=== PATIENT | female | born 1970 | race Caucasian/White ===

== ENCOUNTER 2016-04-15 11:34 | Emergency (ER) | payer BC, OTHER ==
--- NOTE | 2016-04-15 11:49 | ER Document Report ---
ED Medical Screen (RME) - General TRAVEL OUTSIDE OF THE [place] IN LAST 30 DAYS: No - General Stated Complaint: FLANK/BACK PAIN Notes: Right flank pain nausea for 24 hours. (JOANN FONG) - Related Data Allergies/Adverse Reactions: Penicillins Allergy (Severe, Verified 04/15/16 11:49) Hives Past Medical History - Past Medical History Cardiac Medical History: Denies: Hx Coronary Artery Disease, Hx Heart Attack, Hx Hypertension Pulmonary Medical History: Denies: Hx Asthma, Hx Bronchitis, Hx COPD, Hx Pneumonia Neurological Medical History: Denies: Hx Cerebrovascular Accident, Hx Seizures Musculoskeltal Medical History: Denies Hx Arthritis Past Surgical History: Reports: Hx Tubal Ligation - Immunizations Hx Diphtheria, Pertussis, Tetanus Vaccination: Yes
[2016-04-15] MEDS ORDERED: KETOROLAC TROMETHAMINE 60 MG/2 ML SDV IV ONE (12:39)
[2016-04-15] MEDS ORDERED: ONDANSETRON HCL INJ/PF 4 MG/2 ML SDV IV ONE (12:39)
--- NOTE | 2016-04-15 12:48 | ER Document Report ---
ED GI/ - General Chief Complaint: Abdominal Pain Stated Complaint: FLANK/BACK PAIN Notes: Patient is complaining of 2 day history of pain beginning in the mid epigastric region of the abdomen and going around the right upper quadrant into the right back. The pain is constant and sharp and worsened with a deep breath or by food intake. She's been nauseated but not vomited. No diarrhea or change in bowels. Denies UTI symptoms. Has never had a kidney stone. No cough or cold or chest congestion. No fevers. PMH: BTL, hysterectomy. No chronic medications. TRAVEL OUTSIDE OF THE [place] IN LAST 30 DAYS: No - Related Data Allergies/Adverse Reactions: Penicillins Allergy (Severe, Verified 04/15/16 11:49) Hives Past Medical History - Social History Smoking Status: Current Every Day Smoker Cigarette use (# per day): Yes Chew tobacco use (# tins/day): No Frequency of alcohol use: None Drug Abuse: None Family History: None, Reviewed & Not Pertinent Patient has suicidal ideation: No Patient has homicidal ideation: No - Past Medical History Cardiac Medical History: Denies: Hx Coronary Artery Disease Past Surgical History: Reports: Hx Hysterectomy, Hx Tubal Ligation - Immunizations Hx Diphtheria, Pertussis, Tetanus Vaccination: Yes Review of Systems - Review of Systems Notes: REVIEW OF SYSTEMS: CONSTITUTIONAL : Denies fever. EENT: Denies eye, ear, nose or mouth or throat pain or other symptoms. CARDIOVASCULAR: Denies chest pain. RESPIRATORY: Denies cough, chest congestion, or shortness of breath. GASTROINTESTINAL: See history of present illness. GENITOURINARY: Denies difficulty or painful urinating, urinary frequency, blood in urine. MUSCULOSKELETAL: Denies back or neck pain. Denies joint pain or swelling. SKIN: Denies rash or skin lesions. NEUROLOGICAL: Denies LOC or altered mental status. Denies headache. Denies sensory loss or motor deficits. ALL OTHER SYSTEMS REVIEWED AND NEGATIVE. Physical Exam - Vital signs Vitals: Temp Pulse Resp BP Pulse Ox 98.2 F 62 24 H 127/77 H 98 04/15/16 11:46 04/15/16 11:46 04/15/16 11:46 04/15/16 11:46 04/15/16 11:46 Interpretation: Normal - Notes Notes: PHYSICAL EXAMINATION: GENERAL: Well-appearing, in no acute distress. Appears uncomfortable. Vital signs are normal. Afebrile. HEAD: Atraumatic, normocephalic. NECK: Normal range of motion, supple. LUNGS: Breath sounds clear and equal bilaterally. HEART: Regular rate and rhythm without murmurs. ABDOMEN: Soft, mild tenderness in the right upper quadrant. No masses felt. No bruits heard. No guarding or rebound. BACK: No tenderness throughout entire back. EXTREMITIES: Normal range of motion without pain. NEUROLOGICAL: Normal speech, normal gait. Normal sensory, motor, and reflex exams. Awake, alert, and oriented x3. Cranial nerves normal. SKIN: Warm, dry, no rashes. Course - Re-evaluation Re-evalutation: 04/15/16 15:02 Workup is essentially normal. I relayed this information to the patient. Pointed out to her that it's possible she still could have some gallbladder problems that would require a further test, a HIDA scan which could be ordered by her primary care physician, if she continues to have symptoms. For now, I'm going to prescribe symptomatic medication and recommend she follow-up with her primary care or return if she has new or worsening symptoms. - Vital Signs Vital signs: Temp Pulse Resp BP Pulse Ox 98.2 F 62 24 H 127/77 H 98 04/15/16 11:46 04/15/16 11:46 04/15/16 11:46 04/15/16 11:46 04/15/16 11:46 - Laboratory Result Diagrams: 04/15/16 13:12 04/15/16 13:12 Laboratory results interpreted by me: 04/15/16 13:12 BUN 5 L - Diagnostic Test Radiology reviewed: Image reviewed, Reports reviewed - Ultrasound of the right upper quadrant is normal. Discharge - Discharge Clinical Impression: Right upper quadrant abdominal pain Condition: Stable Disposition: HOME, SELF-CARE Additional Instructions: ABDOMINAL PAIN: There are many causes of abdominal pain. Pain can mean a serious problem requiring surgery (such as appendicitis). It can also be an innocent problem that goes away on its own (such as a viral infection). Often, time must pass to determine the cause of pain. The physician does not feel that hospitalization is necessary, at present. Things may change within the next 24 hours. Call the doctor or come back for re- examination if any problems occur, such as: (1) Pain that becomes more severe, steady, or becomes concentrated in one specific area. Also, pain that is more severe with movement or coughing. (2) Vomiting that persists or becomes more frequent. (3) Blood in the vomitus, urine, or bowel movements. Blood in the stool may have a tarry or black appearance. (4) Shaking chills or fever greater than 100 degrees F. (5) The abdomen becomes more distended or swollen. (6) Bowel movements cease. (7) Failure to improve as expected. NORMAL EXAM AND WORKUP: At this time, your examination and workup show no significant abnormality. No significant abnormal physical findings are noted. All laboratory, EKG, and imaging (x-ray, CT scans, ultrasound) studies that were ordered show no significant abnormality. Although your examination and all studies that were ordered showed no significant abnormal finding, there are no examinations and no studies that are 100% accurate. There is always the possibility that some abnormality could exist and not be detected with physical examination or within the limits and capabilities of laboratory and other studies. You should return or follow up as you were instructed on your visit today for further evaluation if your symptoms do not resolve. TORADOL INJECTION: You have been given an injection of ketorolac tromethamine (Toradol). This is an excellent, safe drug for pain control. It also has potent antiinflammatory action. You should have significant pain relief within about one hour. Toradol is not addicting and is non-sedating. It does not interfere with driving or work. Call or return if you develop itching, hives, shortness of breath, or rash. ANTINAUSEA MEDICATION: You have been given a medication to suppress nausea and vomiting. This type of medication can be given as a shot, pill, or suppository. It will usually last for many hours. Pills and shots usually last six to eight hours, suppositories last about 12 hours. For the typical illness, only one or two doses of the medication may be necessary. Mild lightheadedness may occur. This type of medicine can cause drowsiness. Do not drive or operate dangerous machinery while under its influence. Do not mix with alcohol. See your doctor at once if you have muscle spasms or tightness, or uncontrollable motions (particularly of the neck, mouth, or jaw). Persistent vomiting or severe lightheadedness should also be evaluated by the physician. ORAL NARCOTIC MEDICATION: You have been given a prescription for pain control. This medication is a narcotic. It's best taken with food, as nausea can result if taken on an empty stomach. Don't operate machinery or drive within six hours of taking this medication. Do not combine this medicine with alcohol, or with any medication which can cause sedation (such as cold tablets or sleeping pills) unless you get permission from the physician. Narcotics tend to cause constipation. If possible, drink plenty of fluids and eat a diet high in fiber and fruits. FOLLOW-UP CARE: If you have been referred to a physician for follow-up care, call the physician s office for an appointment as you were instructed or within the next two days. If you experience worsening or a significant change in your symptoms, notify the physician immediately or return to the Emergency Department at any time for re-evaluation. If your symptoms resolve over the next couple of days, I don't think you need to have any more follow-up. However, if you're not doing better in a couple of days, I would follow-up with your primary care physician for further testing, such as a HIDA scan of your gallbladder. Prescriptions: Oxycodone HCl/Acetaminophen [Percocet 5-325 mg Tablet] 1 - 2 tab PO Q4H PRN #15 tablet PRN Reason: Promethazine HCl [Phenergan 25 mg Tablet] 1 - 2 tab PO Q6H PRN #15 tablet PRN Reason: Forms: Return to Work
[2016-04-15 12:57] LABS: APPEARANCE,URINE CLEAR; BILIRUBIN,URINE NEGATIVE (NEGATIVE); GLUCOSE, URINE NEGATIVE (NEGATIVE); KETONES,URINE NEGATIVE (NEGATIVE); LEUKOCYTE ESTERASE,URINE NEGATIVE (NEGATIVE); NITRITE,URINE NEGATIVE (NEGATIVE); PROTEIN,URINE NEGATIVE (NEGATIVE); URINE SPECIFIC GRAVITY 1.012; UROBILINOGEN,URINE NEGATIVE mg/dL (<2.0)
[2016-04-15 13:34] LABS: ABSOLUTE EOSINOPHILS # (AUTO) 0.1 10^3/uL (0.0-0.6); ABSOLUTE LYMPHOCYTES (AUTO) 2.2 10^3/uL (0.5-4.7); ABSOLUTE MONOCYTES (AUTO) 0.6 10^3/uL (0.1-1.4); ABSOLUTE NEUT (AUTO) 6.5 10^3/uL (1.7-8.2); BASOPHILS % (AUTO) 0.2 % (0-2); EOSINOPHILS % (AUTO) 1.1 % (0-6); HEMATOCRIT 41.7 % (36.0-47.0); HGB HCT DIFFERENCE 0.3; LYMPHOCYTES % (AUTO) 23.4 % (13-45); MEAN CORPUSCULAR HEMOGLOBIN 31.3 pg (27.0-33.4); MEAN CORPUSCULAR HGB CONC 33.6 g/dL (32.0-36.0); MEAN CORPUSCULAR VOLUME 93 fl (80-97); MONOCYTES % (AUTO) 6.7 % (3-13); RED BLOOD COUNT 4.48 10^6/uL (3.72-5.28); RED CELL DISTRIBUTION WIDTH 13.6 % (11.5-14.0); SEGMENTED NEUTROPHILS % (AUTO) 68.6 % (42-78); WHITE BLOOD COUNT 9.5 10^3/uL (4.0-10.5)
[2016-04-15 13:49] LABS: ALANINE AMINOTRANSFERASE 18 U/L (9-52); ALBUMIN 4.2 g/dL (3.5-5.0); ALKALINE PHOSPHATASE 94 U/L (38-126); ANION GAP 10 (5-19); ASPARTATE AMINO TRANSFERASE 14 U/L (14-36); BILIRUBIN,TOTAL 0.5 mg/dL (0.2-1.3); BLOOD UREA NITROGEN 5 mg/dL (7-20); CALCIUM 9.7 mg/dL (8.4-10.2); CARBON DIOXIDE 28 mmol/L (22-30); CHLORIDE 105 mmol/L (98-107); CREATININE RESULT 0.68 mg/dL (0.52-1.25); GLUCOSE 89 mg/dL (75-110); LIPASE 110.6 U/L (23-300); POTASSIUM 4.7 mmol/L (3.6-5.0); TOTAL PROTEIN 6.9 g/dL (6.3-8.2)
[2016-04-15 15:25] VITALS: BP 131/68
== END 2016-04-15 15:15 | disposition home or self-care (01) ==
LOC: ER 11:34
DX: R10.11 Right upper quadrant pain (principal); R10.13 Epigastric pain; M54.89 Other dorsalgia; Z88.0 Allergy status to penicillin; F17.210 Nicotine dependence, cigarettes, uncomplicated; Z90.710 Acquired absence of both cervix and uterus; Z98.51 Tubal ligation status
CPT/HCPCS: 99284; 96374; 96375; 36415; 83690; 85025; 80053; 81001; 74000; 76705; J1885; J2405

== ENCOUNTER 2016-12-01 17:48 | Emergency (ER) | payer OTHER ==
[2016-12-01] MEDS ORDERED: NORMAL SALINE 1000 ML 1,000 ML IV ONE (18:11)
[2016-12-01] MEDS ORDERED: FAMOTIDINE INJ/PF 20 MG/2 ML SDV IV ONE (18:12)
[2016-12-01] MEDS ORDERED: KETOROLAC TROMETHAMINE INJ/PF 30 MG/1 ML SDV IV ONE (18:12)
[2016-12-01] MEDS ORDERED: ONDANSETRON HCL INJ/PF 4 MG/2 ML SDV IV ONE ×2 (18:12→19:07)
[2016-12-01] MEDS ORDERED: DICYCLOMINE HCL INJ 20 MG/2 ML AMPULE IM ONE (18:14)
--- NOTE | 2016-12-01 18:14 | ER Document Report ---
ED Medical Screen (RME) - General Chief Complaint: Abdominal Pain Stated Complaint: STOMACH PAIN Time Seen by Provider: 12/01/16 18:08 TRAVEL OUTSIDE OF THE [place] IN LAST 30 DAYS: No - HPI Notes: 12/01/16 18:13 Years of abdominal pain acute relapse yesterday worse today negative workup in March patient recommended to follow-up for HIDA states has not had a EGD or HIDA scan performed - Related Data Allergies/Adverse Reactions: Penicillins Allergy (Severe, Verified 12/01/16 17:54) Hives Past Medical History - Social History Chew tobacco use (# tins/day): No Frequency of alcohol use: Occasional Drug Abuse: None - Past Medical History Cardiac Medical History: Denies: Hx Coronary Artery Disease, Hx Heart Attack, Hx Hypertension Pulmonary Medical History: Denies: Hx Asthma, Hx Bronchitis, Hx COPD, Hx Pneumonia Neurological Medical History: Denies: Hx Cerebrovascular Accident, Hx Seizures Renal/ Medical History: Denies: Hx Peritoneal Dialysis Musculoskeltal Medical History: Denies Hx Arthritis Past Surgical History: Reports: Hx Hysterectomy, Hx Tubal Ligation - Immunizations Hx Diphtheria, Pertussis, Tetanus Vaccination: Yes Review of Systems - Review of Systems Constitutional: No symptoms reported EENT: No symptoms reported Cardiovascular: No symptoms reported Respiratory: No symptoms reported Gastrointestinal: Abdominal pain, Nausea, Vomiting Genitourinary: No symptoms reported Female Genitourinary: No symptoms reported Musculoskeletal: No symptoms reported Skin: No symptoms reported Hematologic/Lymphatic: No symptoms reported Neurological/Psychological: No symptoms reported Physical Exam - Vital signs Vitals: Temp Pulse Resp BP Pulse Ox 97.9 F 60 22 H 149/88 H 100 12/01/16 17:49 12/01/16 17:49 12/01/16 17:49 12/01/16 17:49 12/01/16 17:49 - Respiratory Respiratory status: No respiratory distress Chest status: Nontender Breath sounds: Normal Chest palpation: Normal Course - Vital Signs Vital signs: Temp Pulse Resp BP Pulse Ox 97.9 F 60 22 H 149/88 H 100 12/01/16 17:49 12/01/16 17:49 12/01/16 17:49 12/01/16 17:49 12/01/16 17:49
[2016-12-01 18:34] LABS: ABSOLUTE BASOPHILS # (AUTO) 0.1 10^3/uL (0.0-0.2); ABSOLUTE LYMPHOCYTES (AUTO) 2.6 10^3/uL (0.5-4.7); ABSOLUTE MONOCYTES (AUTO) 0.7 10^3/uL (0.1-1.4); ABSOLUTE NEUT (AUTO) 10.5 10^3/uL (1.7-8.2); BASOPHILS % (AUTO) 0.5 % (0-2); EOSINOPHILS % (AUTO) 0.1 % (0-6); HEMATOCRIT 44.5 % (36.0-47.0); HEMOGLOBIN 15.7 g/dL (12.0-15.5); HGB HCT DIFFERENCE 2.6; LYMPHOCYTES % (AUTO) 18.4 % (13-45); MEAN CORPUSCULAR HEMOGLOBIN 32.6 pg (27.0-33.4); MEAN CORPUSCULAR HGB CONC 35.3 g/dL (32.0-36.0); MEAN CORPUSCULAR VOLUME 92 fl (80-97); MONOCYTES % (AUTO) 5.2 % (3-13); RED BLOOD COUNT 4.81 10^6/uL (3.72-5.28); RED CELL DISTRIBUTION WIDTH 13.4 % (11.5-14.0); SEGMENTED NEUTROPHILS % (AUTO) 75.8 % (42-78); WHITE BLOOD COUNT 13.9 10^3/uL (4.0-10.5)
[2016-12-01 18:51] LABS: ALANINE AMINOTRANSFERASE 20 U/L (9-52); ALKALINE PHOSPHATASE 119 U/L (38-126); ANION GAP 16 (5-19); ASPARTATE AMINO TRANSFERASE 18 U/L (14-36); BILIRUBIN,DIRECT 0.5 mg/dL (0.0-0.4); BILIRUBIN,TOTAL 0.7 mg/dL (0.2-1.3); BLOOD UREA NITROGEN 10 mg/dL (7-20); CARBON DIOXIDE 22 mmol/L (22-30); CHLORIDE 105 mmol/L (98-107); CREATININE RESULT 0.78 mg/dL (0.52-1.25); GLUCOSE 106 mg/dL (75-110); LIPASE 85.2 U/L (23-300); POTASSIUM 3.8 mmol/L (3.6-5.0); SODIUM 142.7 mmol/L (137-145); TOTAL PROTEIN 7.9 g/dL (6.3-8.2)
--- NOTE | 2016-12-01 18:57 | ER Document Report ---
ED GI/ - General Mode of Arrival: Wheelchair Information source: Patient TRAVEL OUTSIDE OF THE [place] IN LAST 30 DAYS: No - HPI Patient complains to provider of: Abdominal pain, Vomiting, Other - nausea Similar symptoms previously: No Recently seen / treated by doctor: No <ISSAC FRANCISCO - Last Filed: 12/01/16 20:50> <KAILASH GARCIA - Last Filed: 12/02/16 00:15> - General Chief Complaint: Abdominal Pain Stated Complaint: STOMACH PAIN Time Seen by Provider: 12/01/16 18:08 Notes: Patient is a 46 year old female presenting to the emergency department for abdominal pain. Patient states she has chronic abdominal pain but today her pain is worse than previously and she is having more nausea and vomiting. Patient's pain is located in her right upper quadrant and she states it is the same type of pain but it has become progressively worse and has been constant since yesterday. Patient was seen in March with a negative workup and negative gallbladder ultrasound. At this time the patient was told to follow up to get a HIDA scan and she has not done so. Patient does not have a PCP. (ISSAC FRANCISCO) The patient reports that the symptoms seem to be brought on by eating greasy food. She reports she did follow-up with Dr. Telles after being seen here in March, and that he wanted to do a colonoscopy. A HIDA scan was never done. (KAILASH GARCIA) - Related Data Allergies/Adverse Reactions: Penicillins Allergy (Severe, Verified 12/01/16 17:54) Hives Past Medical History - General Information source: Patient - Social History Smoking Status: Current Every Day Smoker Chew tobacco use (# tins/day): No Frequency of alcohol use: Occasional Drug Abuse: None Family History: None, Reviewed & Not Pertinent Patient has suicidal ideation: No Patient has homicidal ideation: No Past Surgical History: Reports: Hx Hysterectomy, Hx Tubal Ligation - Immunizations Hx Diphtheria, Pertussis, Tetanus Vaccination: Yes <ISSAC FRANCISCO - Last Filed: 12/01/16 20:50> Review of Systems - Review of Systems Constitutional: See HPI, Diaphoresis. denies: Fever EENT: No symptoms reported Cardiovascular: No symptoms reported Respiratory: No symptoms reported Gastrointestinal: See HPI, Abdominal pain, Nausea, Vomiting Genitourinary: No symptoms reported Female Genitourinary: No symptoms reported Musculoskeletal: No symptoms reported Skin: No symptoms reported Hematologic/Lymphatic: No symptoms reported Neurological/Psychological: No symptoms reported -: Yes All other systems reviewed and negative <ISSAC FRANCISCO - Last Filed: 12/01/16 20:50> Physical Exam - Vital signs Interpretation: Hypertensive <SISAC FRANCISCO - Last Filed: 12/01/16 20:50> <KAILASH GARCIA - Last Filed: 12/02/16 00:15> - Vital signs Vitals: Temp Pulse Resp BP Pulse Ox 97.9 F 60 22 H 149/88 H 100 12/01/16 17:49 12/01/16 17:49 12/01/16 17:49 12/01/16 17:49 12/01/16 17:49 - Notes Notes: GENERAL: Alert, interacts well, diaphoretic. Mild distress. HEAD: Normocephalic, atraumatic. EYES: Appear normal. Pupils equal, round, and reactive to light. ENT: Moist mucus membranes, tongue midline. NECK: Full range of motion. Supple. Trachea midline. LUNGS: Clear to auscultation bilaterally, no wheezes, rales, or rhonchi. No respiratory distress. HEART: Regular rate and rhythm. No murmurs, gallops, or rubs. ABDOMEN: Soft, right epigastric region is tender with palpation. Non-distended. Normal bowel sounds. Resonant to percuss. EXTREMITIES: Moves all 4 extremities spontaneously. Normal strength. No edema. NEUROLOGICAL: Alert and oriented x3. Normal speech. No focal neurological deficits. GCS 15. PSYCH: Normal affect, normal mood. SKIN: Warm, dry, normal turgor. No rashes or lesions noted. (REGGIEISSAC ZUNIGA) Course - Laboratory Result Diagrams: 12/01/16 18:15 12/01/16 18:15 <MARYAMRODISSAC - Last Filed: 12/01/16 20:50> - Laboratory Result Diagrams: 12/01/16 18:15 12/01/16 18:15 - Diagnostic Test Radiology reviewed: Image reviewed, Reports reviewed - Gallbladder ultrasound is unremarkable. Contrast a CT scan of the abdomen and pelvis is unremarkable. - EKG Interpretation by Ar EKG shows normal: Sinus rhythm, Sharon, Intervals, QRS Complexes, ST-T Waves Rate: Normal - 55 Rhythm: NSR <KAILASH GARCIA - Last Filed: 12/02/16 00:15> - Vital Signs Vital signs: Temp Pulse Resp BP Pulse Ox 97.9 F 60 22 H 159/88 H 100 12/01/16 17:49 12/01/16 17:49 12/01/16 17:49 12/01/16 21:47 12/01/16 17:49 - Laboratory Laboratory results interpreted by me: 12/01/16 12/01/16 12/01/16 18:15 18:15 18:15 WBC 13.9 H Hgb 15.7 H Absolute Neutrophils 10.5 H Lactic Acid 2.2 H Calcium 11.0 H Direct Bilirubin 0.5 H Discharge <ISSAC FRANCISCO - Last Filed: 12/01/16 20:50> <KAILASH GARCIA - Last Filed: 12/02/16 00:15> - Discharge Clinical Impression: Right upper quadrant abdominal pain Condition: Stable Disposition: HOME, SELF-CARE Additional Instructions: The right upper quadrant abdominal pain which you experience is very suspicious for gallbladder disease. The gallbladder ultrasound did not show any structural abnormality. The CT scan of your abdomen and pelvis with contrast did not show any abnormality. The next step would be doing a HIDA scan. Call the radiology department Saturday morning to schedule the HIDA scan this week. Follow-up with a local medical doctor after you get the HIDA scan done. RETURN TO THE EMERGENCY ROOM IF ANY NEW OR WORSENING SYMPTOMS. Prescriptions: Hydrocodone/Acetaminophen [Hydrocodon-Acetaminophen 5-325] 1 each PO Q4 #15 tablet Forms: Follow-Up Radiology Testing Referrals: NAREN MCGHEE MD [Primary Care Provider] - Follow up as needed Scribe Attestation: 12/01/16 23:25 I personally performed the services described in the documentation, reviewed and edited the documentation which was dictated to the scribe in my presence, and it accurately records my words and actions. (KAILASH GARCIA) Scribe Documentation - Scribe Written by Scribe:: Freddie Rodriguez 12/01/2016 19:42 acting as scribe for :: Deny <ISSAC FRANCISCO - Last Filed: 12/01/16 20:50>
[2016-12-01] MEDS ORDERED: DEXTROSE 5%-LACTATED RINGERS 1,000 ML IV ONE (19:07)
[2016-12-01] MEDS ORDERED: MORPHINE SULFATE 10 MG/ML INJ IV ONE ×2 (19:07→20:37)
--- NOTE | 2016-12-01 20:17 | RADIOLOGY REPORT (SQ) ---
EXAM DESCRIPTION: U/S ABDOMEN LIMITED W/O DOP COMPLETED DATE/TIME: 12/01/2016 7:51 pm REASON FOR STUDY: RUQ cramping pain COMPARISON: 04/15/2016 TECHNIQUE: Dynamic and static grayscale images acquired of the abdomen and recorded on PACS. Danyelleo thomas selected color Doppler and spectral images recorded. LIMITATIONS: None. FINDINGS: PANCREAS: No masses demonstrated. Visualized pancreatic duct normal caliber. LIVER: No masses. Echotexture normal. LIVER VASCULATURE: Normal directional flow of the main portal vein and hepatic veins. GALLBLADDER: No stones. Normal wall thickness. No pericholecystic fluid. ULTRASOUND-DETECTED DE LEÓN'S SIGN: Negative. INTRAHEPATIC DUCTS AND COMMON DUCT: CBD and intrahepatic ducts normal caliber. No filling defects. INFERIOR VENA CAVA: Normal flow. AORTA: No aneurysm. RIGHT KIDNEY: Normal size. Normal echogenicity. No solid or suspicious masses. No hydronephrosis. No calcifications. PERITONEAL AND RIGHT PLEURAL SPACE: No ascites or effusions. OTHER: No other significant findings. IMPRESSION: NORMAL RIGHT UPPER QUADRANT ULTRASOUND. TECHNICAL DOCUMENTATION: JOB ID: [id number]- All Rights Reserved
[2016-12-01] MEDS ORDERED: METOCLOPRAMIDE HCL INJ/PF 10 MG/2 ML SDV IV ONE (20:38)
--- NOTE | 2016-12-01 22:04 | EKG REPORT ---
SEVERITY:- NORMAL ECG - SINUS RHYTHM : Confirmed by: Song Fuentes 01-Dec-2016 22:03:05
--- NOTE | 2016-12-01 23:49 | RADIOLOGY REPORT (SQ) ---
EXAM DESCRIPTION: CT ABD/PELVIS WITH IV ORAL COMPLETED DATE/TIME: 12/01/2016 11:35 pm REASON FOR STUDY: Right eigastric abd pain, diaphoresis COMPARISON: Right upper quadrant ultrasound 12/01/[address] abdomen and pelvis 05/09/2007 TECHNIQUE: CT scan of the abdomen and pelvis performed using helical scanning technique with dynamic intravenous contrast injection. No oral contrast. Images reviewed with lung, soft tissue, and bone windows. Reconstructed coronal and sagittal MPR images reviewed. Delayed images for evaluation of the urinary system also acquired. All images stored on PACS. All CT scanners at this facility use dose modulation, iterative reconstruction, and/or weight based d osing when appropriate to reduce radiation dose to as low as reasonably achievable (ALARA). [facility]: Dose Right [facility]: CareDose [facility]: Dose Right [facility]: Teradose 4D [facility]: [employer]ils CONTRAST TYPE AND DOSE: contrast/concentration: Isovue 370.00 mg/ml; Total Contrast Delivered: 80.0 ml; Total Saline Delivered: 68.0 ml RENAL FUNCTION: BUN 10; creatinine 0.78 RADIATION DOSE: Up-to-date CT equipment and radiation dose reduction techniques were employed. CTDIv ol: 9.3 - 13.1 mGy. DLP: 1090 mGy-cm.. LIMITATIONS: None. FINDINGS: LOWER CHEST: No significant findings. No nodules or infiltrates. LIVER: Normal size. No masses. No dilated ducts. SPLEEN: Normal size. No focal lesions. PANCREAS: No masses. No significant calcifications. No adjacent inflammation or peripancreatic fluid collections. Pancreatic duct not dilated. GALLBLADDER: No identified stones by CT criteria. No inflammatory changes to suggest cholecystitis. ADRENAL GLANDS: No significant masses or asymmetry. RIGHT KIDNEY AND URETER: No solid masses. No significant calcifications. No hydronephrosis or hyd roureter. LEFT KIDNEY AND URETER: No solid masses. No significant calcifications. No hydronephrosis or hydr oureter. AORTA AND VESSELS: No aneurysm. No dissection. Calcified and noncalcified atherosclerotic plaque are seen of the aorta and iliac arteries. . RETROPERITONEUM: No retroperitoneal adenopathy, hemorrhage or masses. BOWEL AND PERITONEAL CAVITY: No masses or inflammatory changes. No free fluid or peritoneal masses. APPENDIX: Normal. PELVIS: No mass. No free fluid. Normal bladder. ABDOMINAL WALL: No masses. No hernias. BONES: No significant or acute findings. OTHER: No other significant finding. IMPRESSION: NO SIGNIFICANT OR ACUTE FINDING IN THE ABDOMEN OR PELVIS ON CT SCAN WITH IV CONTRAST. TECHNICAL DOCUMENTATION: JOB ID: [id number] Quality ID # [id number]: Final reports with documentation of one or more dose reduction techniques (e.g., Au tomated exposure control, adjustment of the mA and/or kV according to patient size, use of iterative reconstruction technique) 2010 ?- All Rights Reserved
[2016-12-02] MEDS ORDERED: HYDROCODONE/ACETAMINOPHEN 5-325 MG 6 TAB/DSPK PO PRN (00:14)
[2016-12-02 00:58] VITALS: BP 105/57
== END 2016-12-02 00:58 | disposition home or self-care (01) ==
LOC: ER 17:48
DX: G89.29 Other chronic pain (principal); R10.11 Right upper quadrant pain; R11.2 Nausea with vomiting, unspecified; R61 Generalized hyperhidrosis; Z88.0 Allergy status to penicillin; Z90.710 Acquired absence of both cervix and uterus
CPT/HCPCS: 93005; 96376; 99284; 96372; 96361; 96375; 96365; 36415; 83690; 85025; 80053; 84484; 83605; 76705; 74177; 93010; J0500; J2765; J2270; J2405; J7030; S0028

== ENCOUNTER → 2016-12-07 | Outpatient (CLI) | payer OTHER ==
--- NOTE | 2016-12-07 15:13 | RADIOLOGY REPORT (SQ) ---
EXAM DESCRIPTION: NM HIDA SCAN WITH CCK COMPLETED DATE/TIME: 12/07/2016 2:15 pm REASON FOR STUDY: RUQ ABD PAIN/NORMAL GB COMPARISON: Abdominal ultrasound 12/01/2016, 04/15/2016, 05/29/2007 CT abdomen pelvis 12/01/2016, 05/09/2007 RADIONUCLIDE AND DOSE: DOSAGE RADIONUCLIDE: 5.2 millicuries Tc99m Mebrofenin. DOSAGE CCK: 1.5 micrograms. DOSAGE MORPHINE: Not required. The route of agent administration: Intravenous TECHNIQUE: Serial imaging right upper quadrant up to 60 minutes following injection of radionuclide. CCK injected after gallbladder visualized. LIMITATIONS: None. FINDINGS: LIVER: Normal visualization without areas of photopenia. INTRAHEPATIC BILE DUCTS: Normal visualization COMMON BILE DUCT: Normal visualization GALLBLADDER: Normal visualization. Calculated ejection fraction of 41%. Normal range is greater th an 35%. PHYSICAL RESPONSE: Patients presenting complaint was reproduced. OTHER: No other significant finding. IMPRESSION: No scintigraphic evidence of cystic duct or common duct obstruction. Although the gallbladder ejection fraction is 41% which is normal, IV cholecystokinin reproduced the patient's symptoms of mid epigastric pain and nausea. There was transient reflux of activity into th e stomach after CCK. TECHNICAL DOCUMENTATION: JOB ID: [id number] [employer]- All Rights Reserved
== END ==
LOC: RAD 11:52
PROVIDERS: ATTEND Emergency Medicine
DX: R10.11 Right upper quadrant pain (principal)
CPT/HCPCS: 78227; A9537; Q9969; J2805

== ENCOUNTER → 2017-03-24 | Emergency (ER) | payer BC ==
--- NOTE | 2017-03-25 09:55 | RADIOLOGY REPORT (SQ) ---
EXAM DESCRIPTION: CHEST PA/LAT COMPLETED DATE/TIME: 03/25/2017 1:32 am REASON FOR STUDY: SOB COMPARISON: None. TECHNIQUE: Frontal and lateral radiographic views of the chest acquired. NUMBER OF VIEWS: Two view. LIMITATIONS: None. FINDINGS: LUNGS AND PLEURA: No evidence of consolidating infiltrate , pleural effusion , or pn eumothorax. MEDIASTINUM AND HILAR STRUCTURES: No masses or contour abnormalities. HEART AND VASCULATURE: Heart normal size. No evidence for failure. BONY STRUCTURES: No acute findings. HARDWARE: None. OTHER: No other significant finding. IMPRESSION: NO SIGNIFICANT RADIOGRAPHIC FINDING IN THE CHEST. TECHNICAL DOCUMENTATION: JOB ID: [id number]
== END ==
LOC: ER 11:44
DX: J06.9 Acute upper respiratory infection, unspecified (principal); R50.9 Fever, unspecified; R06.2 Wheezing; R05 Cough; R09.81 Nasal congestion; R11.0 Nausea
CPT/HCPCS: 71046; 99283

== ENCOUNTER 2019-10-08 17:37 | Emergency (ER) | payer SELFPAY ==
[2019-10-08 17:48] VITALS: BP 137/79
--- NOTE | 2019-10-08 18:20 | ER Document Report ---
ED Skin Rash/Insect Bite/Abscs - General Chief Complaint: Abscess Stated Complaint: ABSCESS Time Seen by Provider: 10/08/19 18:13 Mode of Arrival: Ambulatory Information source: Patient Notes: Patient is a 49-year-old female comes emergency room with a one-week onset of bumps under her left axilla. Patient states that she had only one bump there a week ago and she popped it and it got better. She did have some little minor pus come out of it at that time. Then yesterday she noticed that she has 4-5 little bumps that are very tender which have also popped up under that left axilla. She denies any fever. She denies any history of abscesses under the arm. She does admit to shaving quite often. She is not had any change in her normal habits but the bumps have popped up. She denies any fever nausea vomiting or diarrhea. TRAVEL OUTSIDE OF THE [place] IN LAST 30 DAYS: No - HPI Patient complains to provider of: Skin rash/lesion, Tender/swollen area Onset: Last week Onset/Duration: Gradual Quality of pain: Pressure, Sharp, Stabbing, Throbbing Severity: Moderate Pain Level: 2 Skin Character: Abscess, Drainage, Macules, Papules, Tenderness Skin Temperature: Warm Quality of rash: Itchy, Painful Identify cause: No Exacerbated by: Denies Relieved by: Denies Similar symptoms previously: Yes Recently seen / treated by doctor: No - Related Data Allergies/Adverse Reactions: Penicillins Allergy (Severe, Verified 10/08/19 17:43) Hives Past Medical History - General Information source: Patient - Social History Smoking Status: Current Every Day Smoker Chew tobacco use (# tins/day): No Smoking Education Provided: Yes Frequency of alcohol use: Occasional Drug Abuse: None Family History: None, Reviewed & Not Pertinent Patient has homicidal ideation: No - Past Medical History Cardiac Medical History: Denies: Hx Coronary Artery Disease, Hx Heart Attack, Hx Hypertension Pulmonary Medical History: Denies: Hx Asthma, Hx Bronchitis, Hx COPD, Hx Pneumonia Neurological Medical History: Denies: Hx Cerebrovascular Accident, Hx Seizures Renal/ Medical History: Denies: Hx Peritoneal Dialysis Musculoskeletal Medical History: Denies Hx Arthritis Past Surgical History: Reports: Hx Hysterectomy, Hx Tubal Ligation - Immunizations Hx Diphtheria, Pertussis, Tetanus Vaccination: Yes Review of Systems - Review of Systems Constitutional: No symptoms reported EENT: No symptoms reported Cardiovascular: No symptoms reported Respiratory: No symptoms reported Gastrointestinal: No symptoms reported Genitourinary: No symptoms reported Female Genitourinary: No symptoms reported Musculoskeletal: No symptoms reported Skin: See HPI, Lumps, Rash Hematologic/Lymphatic: No symptoms reported Neurological/Psychological: No symptoms reported -: Yes All other systems reviewed and negative Physical Exam - Vital signs Vitals: Temp Pulse Resp BP Pulse Ox 99.0 F 73 17 137/79 H 98 10/08/19 17:42 10/08/19 17:42 10/08/19 17:42 10/08/19 17:42 10/08/19 17:42 Interpretation: Hypertensive - Notes Notes: PHYSICAL EXAMINATION: GENERAL: Well-appearing, well-nourished and in no acute distress. HEAD: Atraumatic, normocephalic. EYES: Pupils equal round and reactive to light, extraocular movements intact, conjunctiva are normal. ENT: Nares patent, oropharynx clear without exudates. Moist mucous membranes. NECK: Normal range of motion, supple without lymphadenopathy LUNGS: Breath sounds clear to auscultation bilaterally and equal. No wheezes rales or rhonchi. HEART: Regular rate and rhythm without murmurs Musculoskeletal: Normal range of motion, no pitting or edema. No cyanosis. NEUROLOGICAL: Normal speech, normal gait. Normal sensory, motor exams PSYCH: Normal mood, normal affect. SKIN: Examination patient her concern is her left axilla. Patient has 1 area that is approximately a centimeter and a half across that is oozing slightly. A whitish-hearn material no blood mixed. The other 4 lesions are barely palpable very small no induration no erythema noted and no cellulitis presentation. Presentation is more of a folliculitis at this time. Course - Re-evaluation Re-evalutation: 10/08/19 23:03 At present there is no areas to I&D the small area is draining on its own. We will forego an I&D at this time. Place patient on antibiotics as we had discussed with her which are to she will return to ER if she has any concerns or problems. She will continue to use warm moist compresses. - Vital Signs Vital signs: Temp Pulse Resp BP Pulse Ox 99.1 F 73 17 137/79 H 98 10/08/19 17:43 10/08/19 17:42 10/08/19 17:42 10/08/19 17:42 10/08/19 17:42 Discharge - Discharge Clinical Impression: Folliculitis Condition: Stable Disposition: HOME, SELF-CARE Instructions: Abscess ([facility]), Cephalexin ([facility]), Folliculitis ([facility]), MRSA Cellulitis ([facility]) Additional Instructions: Home and rest. Medications prescribed. As we discussed if this pops up and gets bigger overnight you can return to ER for reevaluation. Avoid shaving or using any type of antiperspirant at this time. You may try to use some [employer] powder. You can also use moist compresses that are warm. Use warm compresses or is warm she can stand up from the sink do not put him in a microwave. Prescriptions: Clindamycin HCl 300 mg PO QID #40 capsule Fluconazole [Diflucan] 150 mg PO ONCE PRN #1 tablet PRN Reason: Cephalexin Monohydrate [Keflex 500 mg Capsule] 500 mg PO Q6H 5 Days capsule
== END 2019-10-08 18:27 | disposition home or self-care (01) ==
LOC: ER 17:37
DX: L73.9 Follicular disorder, unspecified (principal); F17.200 Nicotine dependence, unspecified, uncomplicated; Z88.0 Allergy status to penicillin
CPT/HCPCS: 99282